=== PATIENT | female | born 1970 | race Caucasian/White ===

== ENCOUNTER → 2021-03-13 | Day surgery (SDC) | payer OTHER ==
[~2021-03-13] MED LIST: FLEXERIL PO; HYDROCODON-ACE1 EAC7 PO; NOHOMEMEDICATIONS; NORCO 5-325 TA1 EACH PO
--- NOTE | ~2021-03-13 | OP ---
[facility] [address] [place] [address] OPERATIVE REPORT Name: THREON HADDAD [place] [facility] [place] [id number] Admission: Attend Phys: Brock Dale Discharge: Date of : 70 Report #: [id number] THIS REPORT FOR: cc: Shelbie Ni MD, Ghazal A. MD Patterson, Jonathan D. MD ~ DATE OF SURGERY: 03/13/2021 PREOPERATIVE DIAGNOSIS: Symptomatic cholelithiasis. POSTOPERATIVE DIAGNOSIS: Symptomatic cholelithiasis. OPERATION: Laparoscopic cholecystectomy. SURGEON: Brock Dale MD ANESTHESIA: General. ESTIMATED BLOOD LOSS: Minimal. SPECIMENS: Gallbladder. DESCRIPTION OF PROCEDURE: After informed consent was obtained, the patient was brought to the operating room and placed supine. SCDs were placed and working, preoperative antibiotics were administered, general anesthesia was induced. The abdomen was prepped and draped in the usual sterile fashion. A 10 mm incision was made below the umbilicus. Fascia was incised and a trocar was placed. Pneumoperitoneum was established. Three right upper quadrant 5 mm ports were placed. Gallbladder was grasped at the fundus and retracted cephalad. Infundibulum was grasped and retracted laterally. I dissected out the cystic duct and cystic artery as well as the cystic plate. Cystic duct and artery were clipped and ligated leaving a clip and a PDS Endoloop on the remaining duct and a clip on the remaining artery. Gallbladder was then taken off the liver bed with electrocautery. It was placed into an Endopouch and removed. The fascia was then closed with a etnpnq-sj-umedl 0 Vicryl. Skin was closed with 4-0 Monocryl. Incisions were sealed with Steri-Strips. COMPLICATIONS: None. DISPOSITION: The patient was taken to recovery in satisfactory condition. By: [id number] Dale MD /ru
[2021-03-13 08:47] LABS: CALCIUM 8.2 mg/dL (8.5-10.1); CREATININE 0.7 mg/dL (0.6-1.3); POTASSIUM 3.9 mmol/L (3.5-5.1)
[2021-03-13 08:52] LABS: ALBUMIN 3.1 g/dL (3.4-5.0); TOTAL BILIRUBIN 0.2 mg/dL (<0.1-1.0); TOTAL PROTEIN 5.8 g/dL (6.4-8.2)
--- NOTE | 2021-03-15 12:14 | PATH ---
[address] [address] PATHOLOGY RPT PROCEDURE Name: THERON HADDAD Room: [facility]..#: [id number] Admission: 03/13/21 Date of : 70 Discharge: Report #: [id number] Path Case #: [id number] [facility] Accession Number: [id number] . 01 Material submitted: . gallbladder - GALLBLADDER . 01 Clinical history: . CALCULUS OF GALLBLADDER . 02 Diagnosis: Gallbladder: - Chronic cholecystitis and cholelithiasis. (SUSY:marisol; 03/14/2021) [facility] [place] 1310 Local . 02 Electronically signed: . Tim Sanabria MD, Pathologist NPI- [id number] . 01 Gross description: . Fixative: Formalin Labeled: Gallbladder Specimen received: Intact gallbladder Dimensions: 9.5 x 4.2 x 3.7 cm Serosa: Pale laird with focal dark purple patches Lymph node: None identified Mucosa: Velvety and bile-stained Average wall thickness: 0.1 cm Calculi: Present, dark brown multifaceted Abnormalities: None identified . A1- Contact Lens Technician body, fundus, and the cystic duct margin. ([facility]; 03/13/2021) [facility] 03/13/2021 1157 Local . 02 Pathologist provided ICD-10: K80.10 . 02 CPT . 066171 Specimen Comment: A courtesy copy of this report has been sent to [phone] Specimen Comment: Report sent to Specimen Comment: A duplicate report has been generated due to demographic updates. Performed at: [address] [id number] [place] [address] PATHOLOGY RPT PROCEDURE Name: THERON HADDAD Room: [facility]#: [id number] Admission: 03/13/21 Date of : 70 Discharge: Report #: [id number] Path Case #: [id number] MD Fili Singh MD Phone: [phone] Performed at: [address] [facility] [address] [place], [place] [id number] MD Tim Sanabria MD Phone: [phone]
== END | disposition home or self-care (01) ==
LOC: M.SUR 06:10
PROVIDERS: ATTEND Surgery
DX: K80.10 Calculus of gallbladder with chronic cholecystitis without obstruction (principal); R10.11 Right upper quadrant pain; Z98.890 Other specified postprocedural states; Z90.49 Acquired absence of other specified parts of digestive tract; Z90.710 Acquired absence of both cervix and uterus; Z20.822 Contact with and (suspected) exposure to COVID-19